=== PATIENT | male | born 1955 | race African-American/Black ===

== ENCOUNTER → 2016-09-02 | Outpatient (CLI) | payer MEDICAID | LOC: MHCPAIN 09:41 | DX: G89.29 Other chronic pain (principal); M47.27 Other spondylosis with radiculopathy, lumbosacral region; M53.3 Sacrococcygeal disorders, not elsewhere classified; M17.0 Bilateral primary osteoarthritis of knee; F17.210 Nicotine dependence, cigarettes, uncomplicated | CPT/HCPCS: G0463 ==

== ENCOUNTER 2016-11-24 08:00 | Outpatient (RCR) | payer MEDICAID | END 2016-12-14 10:35 | disposition home or self-care (01) | LOC: WSPT 08:00 | DX: G89.29 Other chronic pain (principal); M54.16 Radiculopathy, lumbar region; M53.3 Sacrococcygeal disorders, not elsewhere classified; M47.817 Spondylosis without myelopathy or radiculopathy, lumbosacral region; M17.0 Bilateral primary osteoarthritis of knee ==

== ENCOUNTER → 2017-04-05 | Outpatient (CLI) | payer MEDICAID | LOC: COL.RAD 10:15 | DX: N20.1 Calculus of ureter (principal); R93.5 Abnormal findings on diagnostic imaging of other abdominal regions, including retroperitoneum; R79.89 Other specified abnormal findings of blood chemistry ==